=== PATIENT | female | born 1965 | race Caucasian/White ===

== ENCOUNTER 2017-09-17 05:44 | Emergency (ER) | payer OTHER ==
[~2017-09-17] VITALS: Ht 172.7 cm; Wt 63.5 kg
[~2017-09-17 05:44] MED LIST: ALBUTEROL2.5 MG/3 M INH/SOL; ATORVASTATIN CA20 MG PO; BUPROPION HCL200 MG PO; CYCLOBENZAPRINE10 M1 PO; CYCLOBENZAPRINE5 M2 PO; DILAUDID2 M1 PO; DILAUDID2 MG PO; DOCUSATE SODIU100 M3 PO; DOXYCYCLINE HY100 M4 PO; FENTANYL1 EAC2 TOP; FLOVENT0.11 MG/Ac INH; FLUOXETINE HCL20 M2 PO; HYDROMORPHONE HC2 M1 PO; IBUPROFEN600 M1 PO; IBUPROFEN800 M1 PO; KEFLEX500 M1 PO; LORATADINE10 M2 PO; MEDROL4 M2 PO; MEDROXYPROGEST2.5 M2 PO; METHYLPREDNISOLO4 M2 PO; NAPROSYN500 M1 PO; OMEPRAZOLE20 M2 PO; PERCOCET 10-321 EACH PO; PERCOCET 5-3251 EACH PO; PREDNISONE20 M1 PO; PREDNISONE50 M1 PO; PROAIR HFA8.5 GM INH; SENNA PLUS TAB1 EACH PO; VALIUM5 M2 PO; VENTOLIN HFA18 GM INH; VIVELLE-DOT1 EAC2 TOP; ZOFRAN ODT4 MG SL
[2017-09-17 06:48] VITALS: BP 119/77
--- NOTE | 2017-09-17 06:48 | RADIOLOGY REPORT ---
EXAMINATION: XR CHEST CLINICAL INFORMATION: Cough, fever COMPARISON: Chest x-ray January 03, 2011 TECHNIQUE: 2 views of the chest were obtained. 6:24 AM FINDINGS: No acute abnormality. Lungs are clear. No pulmonary vascular congestion or pleural effusion. Cardiac and mediastinal contours are normal. Heart size is normal. Neural stimulator probe over the lower thoracic spinal canal. Compared to prior study no change. IMPRESSION: No acute abnormality of chest.
--- NOTE | 2017-09-17 06:58 | ED DYSPNEA/ASTHMA COMPLAINT ---
History of Present Illness General Chief Complaint: General Adult Stated Complaint: "THINK I HAVE BRONCHITIS" FEVER PER PT Source: patient, old records Exam Limitations: no limitations Vital Signs & Intake/Output Vital Signs & Intake/Output Vital Signs Date Time Temp Pulse Resp B/P B/P Pulse O2 O2 Flow FiO2 Mean Ox Delivery Rate 09/17 0656 96 Room Air 09/17 0648 98.0 80 18 119/77 96 Room Air Allergies Coded Allergies: Penicillins (Intermediate, HIVES 04/25/16) cefaclor (Intermediate, HIVES 04/25/16) erythromycin base (Intermediate, CHEST PAIN 04/25/16) Reconcile Medications Albuterol Sulfate 2.5 MG/3 ML (0.083 %) VIAL.NEB 1 Vial INH/DENIS Q4P PRN WHEEZE Albuterol Sulfate (Ventolin Hfa) 90 MCG HFA.AER.AD 2 PUF INH Q4-6 PRN PRN WHEEZE Albuterol Sulfate (Proair Hfa) 90 MCG HFA.AER.AD 2 PUF INH Q4-6 PRN PRN bronchospasm Atorvastatin Calcium (Lipitor) 20 MG TABLET 1 TAB PO DAILY CHOLESTEROL ( Reported) Benzonatate (Tessalon Perle) 100 MG CAPSULE 1 CAP PO TID PRN COUGH BUPROPION HCL (Bupropion HCl Sr) 200 MG TABLET.ER 1 TAB PO BID DEPRESSION, SMOKING CESSATION (Reported) Doxycycline Hyclate 100 MG TABLET 1 TAB PO BID BRONCHITIS Fluoxetine HCl 20 MG CAPSULE 1 CAP PO DAILY MENTAL HEALTH (Reported) Medroxyprogesterone Acetate 2.5 MG TABLET 1 TAB PO DAILY HORMONE (Reported) Methylprednisolone. (Medrol) 4 MG TAB.DS.PK 1 DP PO AD SCIATICA 6 on day 1 then reduce by one tablet daily until gone Methylprednisolone. (Medrol) 4 MG TAB.DS.PK 1 DP PO AD BRONCHITIS/WHEEZING 6 on day 1 then reduce by one tablet daily until gone Methylprednisolone. (Medrol) 4 MG TAB.DS.PK 1 DP PO AD BRONCHITIS 6 on day 1 then reduce by one tablet daily until gone Naproxen (Naprosyn) 500 MG TABLET 1 TAB PO BID PAIN Oxycodone HCl/Acetaminophen (Percocet 5-325 MG Tablet) 5 MG-325 MG TABLET 1 TAB PO Q6P PRN pain Prednisone 50 MG TABLET 1 TAB PO DAILY WHEEZE Prednisone 20 MG TABLET 1 TAB PO BID pharyngitis Triage Note: PT FROM HOME C/O CHEST HEAVINESS SINCE SATURDAY. PT STATES "I THINK I HAVE BRONCHITIS, MY EARS ACHE, MY CHEST FEELS LIKE SOMEONE IS SITTING ON IT AND IM TIRED" PTS VSS IN TRIAGE 96% 02 ON RA, AFEBRILE. PT TO AND FROM XRAY VIA AMBULATION WITH STEADY GAIT. PT STATES NON PRODUCTIVE, PT DENIES ARM NUMBNESS/TINGLING, JAW/BACK PAIN. Triage Nurses Notes Reviewed? yes HPI: Patient presents with subjective fevers, chills, nonproductive cough, myalgias and a stuffy nose for the past 3-1/2 days. No anorexia. No nausea or vomiting. No chest pain or chest tightness. No back pain. No dysuria. No headache or blurry vision. Past History Travel History Traveled to [place] past 21 day No Medical History Any Pertinent Medical History? see below for history Neurological: NONE EENT: allergies Cardiovascular: hyperlipidemia Respiratory: asthma Gastrointestinal: NONE Hepatic: NONE Renal: NONE Musculoskeletal: sciatica Psychiatric: depression Endocrine: NONE Blood Disorders: NONE Cancer(s): NONE [employer]HW[employer]INE[employer]/Reproductive: Currently going through menopause, on hormonal patches. History of MRSA: No History of VRE: No History of CDIFF: No Surgical History Surgical History: 4 RIGHT KNEE SURGERIES SINUS SURGERY TONSILLECTOMY Psychosocial History Who do you live with Other (see notes) Services at Home None What is your primary language Georgian Tobacco Use: Quit >30 days ago ETOH Use: occasional use Illicit Drug Use: denies illicit drug use Family History Hx Contributory? No Review of Systems Review of Systems Constitutional: Reports: see HPI, chills. EENTM: Reports: see HPI. Respiratory: Reports: see HPI, cough. Cardiovascular: Reports: no symptoms. GI: Reports: no symptoms. Genitourinary: Reports: no symptoms. Musculoskeletal: Reports: see HPI, muscle pain. Skin: Reports: no symptoms. Neurological/Psychological: Reports: no symptoms. Hematologic/Endocrine: Reports: no symptoms. Immunologic/Allergic: Reports: no symptoms. All Other Systems: Reviewed and Negative Physical Exam Physical Exam General Appearance: well developed/nourished, alert, awake, mild distress Head: atraumatic, normal appearance Eyes: Bilateral: PERRL, EOMI. Ears, Nose, Throat: normal pharynx, normal ENT inspection, hearing grossly normal Neck: normal inspection, supple, full range of motion Respiratory: normal breath sounds, chest non-tender, no respiratory distress, lungs clear Cardiovascular: regular rate/rhythm, normal peripheral pulses Gastrointestinal: normal bowel sounds, soft, non-tender Extremities: normal inspection, normal capillary refill, normal range of motion, no edema Neurologic/Psych: no motor/sensory deficits, awake, alert, oriented x 3, normal gait, normal mood/affect Skin: intact, normal color, warm/dry Lymphatic: no anterior cervical adela Core Measures ACS in differential dx? No CVA/TIA Diagnosis No Sepsis Present: No Sepsis Focused Exam Completed? No Progress Differential Diagnosis: asthma, bronchitis, COPD, pneumonia Plan of Care: XRAY CXR Impression: PATIENT: NICKI DYKES PRESENT AGE: 51 PATIENT ACCOUNT NO: [id number] : [birth year] LOCATION: [facility] ORDERING PHYSICIAN: Rubio Sanches MD SERVICE DATE: 09/17/17 EXAM TYPE: RAD - XRY-CHEST XRAY, TWO VIEWS EXAMINATION: XR CHEST CLINICAL INFORMATION: Cough, fever COMPARISON: Chest x-ray January 03, 2011 TECHNIQUE: 2 views of the chest were obtained. 6:24 AM FINDINGS: No acute abnormality. Lungs are clear. No pulmonary vascular congestion or pleural effusion. Cardiac and mediastinal contours are normal. Heart size is normal. Neural stimulator probe over the lower thoracic spinal canal. Compared to prior study no change. IMPRESSION: No acute abnormality of chest. DICTATED BY: Geovany Guzmán MD DATE/TIME DICTATED:09/17/17642 NURSING EXECUTIVE:EDMUND DATE/TIME TRANSCRIBED:09/17/17642 CONFIDENTIAL, DO NOT COPY WITHOUT APPROPRIATE AUTHORIZATION. <Electronically signed in Other Vendor System> SIGNED BY: Geovany Guzmán MD 09/17/17647 Initial ED EKG: none Departure Departure Disposition: HOME OR SELF CARE Condition: Stable Clinical Impression Primary Impression: Viral illness Referrals: Kaylie JIMENEZ,Doyle Hatfield (PCP/Family) Additional Instructions: DRINK PLENTY OF FLUIDS RETURN IF SYMPTOMS WORSEN OR FOR ANY CONCERNS Departure Forms: Customer Survey General Discharge Information Prescriptions: Current Visit Scripts Methylprednisolone. (Medrol) 1 DP PO AD #1 DP 6 on day 1 then reduce by one tablet daily until gone Benzonatate (Tessalon Perle) 1 CAP PO TID PRN COUGH #30 CAP Critical Care Note Critical Care Note Critical Care Time: non-applicable
[2017-09-17] MEDS ORDERED: MEDROL4 M2 PO (07:10)
[2017-09-17] MEDS ORDERED: TESSALON PERLE100 M1 PO (07:10)
== END 2017-09-17 07:12 ==
LOC: ERH 05:44
DX: B34.9 Viral infection, unspecified (principal)
CPT/HCPCS: 71046